=== PATIENT | male | born 1955 | race Two or more races ===

== ENCOUNTER 2020-02-26 09:26 | Emergency (ER) | payer MEDICARE, OTHER ==
[~2020-02-26] VITALS: Ht 162.6 cm; Wt 68.0 kg
[2020-02-26] MEDS ORDERED: NIFE-35 PO (09:55)
[2020-02-26] MEDS ORDERED: VIT1TABL46 PO (09:55)
[2020-02-26] MEDS ORDERED: METO25TA6 PO (09:55)
[2020-02-26] MEDS ORDERED: INSU100V7 SQ (09:55)
[2020-02-26] MEDS ORDERED: FURO-152 PO (09:55)
[2020-02-26] MEDS ORDERED: OMEP20CA15 PO (09:55)
[2020-02-26] MEDS ORDERED: ASPI81TA31 PO (09:55)
[2020-02-26] MEDS ORDERED: TAMS-3 PO (09:55)
[2020-02-26] MEDS ORDERED: ONDANSETRON 4 MG/2 ML VIAL IV ONE (10:00)
[2020-02-26] MEDS ORDERED: ONDANSETRON 4 MG/2 ML VIAL ONE (10:18)
[2020-02-26 10:50] LABS: BILIRUBIN,TOTAL 0.6 mg/dL (0.2-1.0); CREATININE 4.7 mg/dL (0.6-1.3); POTASSIUM 3.8 mmol/L (3.5-5.1); TOTAL PROTEIN, SERUM 8.5 g/dL (6.4-8.2)
[2020-02-26 10:56] LABS: BASOPHILS % (AUTO) 0.1 % (0.0-2.0); EOSINOPHILS % (AUTO) 0.4 % (0.0-7.0); HEMATOCRIT 34.3 % (36.7-47.1); HEMOGLOBIN 11.8 g/dL (12.5-16.3); LYMPHOCYTES # (AUTO) 0.5 K/uL (20.0-40.0); LYMPHOCYTES % (AUTO) 9.8 % (20.5-51.5); MEAN CORPUSCULAR HEMOGLOBIN 36.4 uug (23.8-33.4); MEAN CORPUSCULAR HGB CONC 35 g/dL (32.5-36.3); MEAN CORPUSCULAR VOLUME 105.4 fL (73.0-96.2); MONOCYTES # (AUTO) 0.2 K/uL (2.0-10.0); MONOCYTES % (AUTO) 4.2 % (0.0-11.0); NEUTROPHILS # (AUTO) 4.5 K/uL (1.8-8.9); NEUTROPHILS % (AUTO) 85.5 % (38.5-71.5); PLATELET COUNT (AUTO) 97 K/uL (152-348); RED BLOOD CELL COUNT(AUTO) 3.25 MIL/uL (4.06-5.63); WHITE BLOOD COUNT (AUTO) 5.2 K/uL (3.6-10.2)
[2020-02-26] MEDS ORDERED: METOCLOPRAMIDE HCL 10 MG/2 ML VIAL ONE (12:26)
[2020-02-26] MEDS ORDERED: diphenhydrAMINE 50 MG/1 ML VIAL ONE (12:26)
[2020-02-26] MEDS ORDERED: METOCLOPRAMIDE HCL 10 MG/2 ML VIAL IV ONE (12:30)
[2020-02-26] MEDS ORDERED: diphenhydrAMINE 50 MG/1 ML VIAL IV ONE (12:30)
[2020-02-26] MEDS ORDERED: MECLIZINE HCL 25 MG TABLET PO ONE (13:00)
[2020-02-26] MEDS ORDERED: MECLIZINE HCL 25 MG TABLET ONE (13:04)
--- NOTE | 2020-02-26 13:40 | NUR ---
Called GI on-call Dr. Clark ([phone]), per answering service pad extraction tender, left urgent message.
--- NOTE | 2020-02-26 14:20 | NUR ---
Called surgery supervisor stone Dr. Bullard, left urgent msg.
--- NOTE | 2020-02-26 14:45 | NUR ---
DR BAJWA SPOKE WITH DR WATSON FOR CONSULT.
[2020-02-26] MEDS ORDERED: GOLYTELY 4000 ML BOTTLE PO ONE (17:00)
--- NOTE | 2020-02-26 17:30 | NUR ---
Patient was given dinner meal. No c/o any pain. No SOB.
--- NOTE | 2020-02-26 18:00 | NUR ---
Patient dizziness has resolved patient states does not feel it dizzy anymore.
[2020-02-26 18:15] VITALS: BP 155/88
--- NOTE | 2020-02-26 18:15 | NUR ---
Patient discharged to home in stable condition. Written and verbal after care instructions given. Patient and verbalizes understanding of instructions. Stressed follow up or return to ER for worsening s/s.
[2020-02-27 00:13] LABS: NEUTROPHILS % (MANUAL) 83 % (42-75)
[2020-02-27 00:14] LABS: LYMPHOCYTES % (MANUAL) 10 % (20-40); MONOCYTES % (MANUAL) 7 % (2-10)
== END 2020-02-26 18:15 | disposition home or self-care (01) ==
LOC: ER 09:26
DX: H81.10 Benign paroxysmal vertigo, unspecified ear (principal); R94.31 Abnormal electrocardiogram [ECG] [EKG]; T18.4XXA Foreign body in colon, initial encounter; X58.XXXA Exposure to other specified factors, initial encounter; Y92.89 Other specified places as the place of occurrence of the external cause; E11.22 Type 2 diabetes mellitus with diabetic chronic kidney disease; I12.0 Hypertensive chronic kidney disease with stage 5 chronic kidney disease or end stage renal disease; N18.6 End stage renal disease; Z99.2 Dependence on renal dialysis; Z79.4 Long term (current) use of insulin; K80.20 Calculus of gallbladder without cholecystitis without obstruction; D50.9 Iron deficiency anemia, unspecified; Z20.828 Contact with and (suspected) exposure to other viral communicable diseases
CPT/HCPCS: 70450; 71045; 74176; 80053; 82550; 82728; 83605; 83615; 83690; 84145; 84484; 85007; 85025; 85379; 85385; 85730; 86140; 87040 ×2; 87400; 87426; 93005; 96374; 96375; 99285; J1200; J2405; J2765; U0003; 70030-TC; A4663; J8597

== ENCOUNTER 2020-02-27 20:13 | Emergency (ER) | payer MEDICARE, OTHER ==
[~2020-02-27] VITALS: Ht 167.6 cm; Wt 65.8 kg
[~2020-02-27 20:13] MED LIST: ASPI81TA31 PO; FURO-152 PO; INSU100V7 SQ; METO25TA6 PO; NIFE-35 PO; OMEP20CA15 PO; TAMS-3 PO; VIT1TABL46 PO
--- NOTE | 2020-02-27 22:03 | NUR ---
MSE COMPLETED, PT D/C'D HOME WITH CD COPY OF CT SCAN AND RADIOLOGY READING REPORTS. PT ALSO GIVEN, ACI IN [place]. PT AMBULATED WITH WALKER W/O DIFF/TOOK ALL BELONGINGS, DAUGHTER TO PICK HIM UP.
[2020-02-27 22:04] VITALS: BP 148/55
== END 2020-02-27 22:05 | disposition home or self-care (01) ==
LOC: ER 20:17
DX: T18.4XXD Foreign body in colon, subsequent encounter (principal); X58.XXXD Exposure to other specified factors, subsequent encounter; K21.9 Gastro-esophageal reflux disease without esophagitis; N40.0 Benign prostatic hyperplasia without lower urinary tract symptoms; E11.9 Type 2 diabetes mellitus without complications; Z79.4 Long term (current) use of insulin; Z79.899 Other long term (current) drug therapy
CPT/HCPCS: A4663